=== PATIENT | male | born 1955 | race Two or more races ===

== ENCOUNTER 2019-03-03 22:48 | Emergency (ER) | payer BC ==
[~2019-03-03] VITALS: Ht 177.8 cm; Wt 74.4 kg
[~2019-03-03 22:48] MED LIST: ALLEGRA60 MG PO; AZITHROMYCIN250 MG ORAL; NAPROXEN250 MG BC; PREDNISONE20 MG ORAL; PROAIR HFA8.5 GM INH
[2019-03-03 23:13] VITALS: BP 134/85
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
[2019-03-03] MEDS ORDERED: HYDROcodone/Acetamin 5/325 tab ORAL ONE (23:45)
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
[2019-03-04] MEDS ORDERED: HYDROCODON-ACE1 EA15 ORAL (00:22)
[2019-03-04] MEDS ORDERED: IBUPROFEN600 MG ORAL (00:22)
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
--- NOTE | 2019-03-04 00:49 | NUR ---
ED Nurse Note: Pt cleared by health care Provider for discharge. DC instructions/prescription was given and explained to pt and verbalized understanding of teachings. All medical deviecs such as ID band removed. Pt is AAO x4, ambulatory and left with all personal belongings.
== END 2019-03-04 00:49 | disposition home or self-care (01) ==
LOC: EMR 23:55
DX: S92.342A Displaced fracture of fourth metatarsal bone, left foot, initial encounter for closed fracture (principal); S92.352A Displaced fracture of fifth metatarsal bone, left foot, initial encounter for closed fracture; X50.1XXA Overexertion from prolonged static or awkward postures, initial encounter; Y92.9 Unspecified place or not applicable; Z88.6 Allergy status to analgesic agent
CPT/HCPCS: 29515; 99283